=== PATIENT | female | born 1965 | race Caucasian/White ===

== ENCOUNTER 2016-08-30 08:34 | Day surgery (SDC) | payer MEDICARE, OTHER ==
--- NOTE | 2016-08-30 07:14 | History and Physical Report ---
CHIEF COMPLAINT/HISTORY OF CHIEF COMPLAINT: This patient with a history of intractable radiculitis has a spinal opioid infusion device infusing Hydromorphone. Over the last refills it was identified that she had battery depletion. At this point she is here for battery replacement. PAST MEDICAL HISTORY: Hypothyroidism, hydrocephalus with shunt, asthmatic bronchitis. PAST SURGICAL HISTORY: Hip replacement, craniotomy, bladder surgery, and gallbladder surgery. MEDICATIONS ON ADMISSION: List to be provided. ALLERGIES: PENICILLIN, ZOMIG, AND PERCOCET. FAMILY/PSYCHOSOCIAL HISTORY: Social history - Social alcohol. Family history - Thyroid disease, diabetes, and hypertension. SYSTEMS REVIEW: The patient is appropriate in no acute distress. The remainder of the systems review is positive for headaches, depression and difficulty sleeping. PHYSICAL EXAMINATION: Height is 5'6", weight is 110 pounds. No vital signs. HEENT: Within normal limits. LUNGS: Clear. HEART: Regular rate and rhythm. ABDOMEN: Nontender. MUSCULOSKELETAL: Examination of the musculoskeletal system shows the mid incision to be intact. The cnc machine programmer pouch at the right posterior gluteal margin incision is intact. NEUROLOGIC: Cranial nerves are intact. IMPRESSION: 1. INTRACTABLE RADICULITIS, ICD10 CODE M54.16 AND M54.17. 2. INTRASPINAL INFUSION SYSTEM INFUSING HYDROMORPHONE WITH BATTERY DEPLETION. PLAN: The patient is here on an outpatient basis for replacement of the battery. No change will be made to the parameters. MANDO MCCAULEY D.O. Date & Time JOB NUMBER: [id number] [facility]
[~2016-08-30 08:34] MED LIST: ACETAMINOPHEN 1000MG/100 ML PREMIX IV ONE; CLINDAMYCIN 600MG/50ML PREMIX 50 ML IVPB ONE; FAMOTIDINE 20MG TABLET PO ONE; HYDROMORPHONE HCL IV ONE; HYDROMORPHONE HCL/PF 0.002 MG in 0.9 % SODIUM CHLORIDE 10ML VIA 0.998 ML IVP ONE; MECLIZINE 25 MG TABLET PO ONE; METOCLOPRAMIDE 10 MG TABLET PO ONE; SODIUM CHLORIDE 0.9% IV ONE
[2016-08-30] MEDS ORDERED: LIDOCAINE 2% MDV (20MG/ML) 20ML VIAL IV ONE (14:00)
[2016-08-30] MEDS ORDERED: PROPOFOL 10 MG/ML VIAL IV ONE (14:00)
[2016-08-30] MEDS ORDERED: DEXMEDETOMIDINE HCL 200 MCG/2 ML VIAL IV ONE (14:00)
[2016-08-30] MEDS ORDERED: MIDAZOLAM HCL 2MG/2ML VIAL IV ONE (14:00)
[2016-08-30] MEDS ORDERED: BUPIVACAINE 0.5% W/EPI MPF 30 ML VIAL IVP ONE (14:00)
[2016-08-30] MEDS ORDERED: FENTANYL PF 100MCG/2ML VIAL IV ONE (14:00)
[2016-08-30] MEDS ORDERED: LIDOCAINE 1% W/EPI 1:200,000 MPF 30ML SQ ONE (14:00)
[2016-08-30] MEDS ORDERED: CLINDAMYCIN 600MG/4 ML VIAL IV ONE (14:00)
--- NOTE | 2016-09-01 17:00 | Operative Note ---
DATE OF SURGERY: 08/30/2016 PREOPERATIVE DIAGNOSES: 1. Intractable lumbar radiculitis, ICD10 code M54.16 and M54.17. 2. Implanted spinal opioid infusion system hydromorphone with battery depletion. OPERATION: 1. Incision, subcutaneous dissection, removal and replacement of programmable pump at right posterior gluteal margin. 2. Revision and resection of internal catheter. 3. Interface revised catheter to pump placement and pump into pouch secured to fascia without absorbable suture. 4. Diagnostic myelography with radiologic supervision and interpretation. 5. Programming of pump to deliver by continuous infusion of hydromorphone 0.5 mg/day. Surgeon: Kan Paul DO Anesthesia: Local with sedation. Anesthesia Provider: Last Hall. Indication: This patient presents with a history of intractable lumbar radiculitis and a spinal infusion system with hydromorphone. Over the last refill, it was identified that the battery had depletion of the power source, so she is here for battery replacement surgery. PROCEDURE: Intravenous line, vital sign monitoring, IV sedation. Prepped, draped, sterile technique. The patient was positioned prone. Sterile prep, sterile technique. The posterior pouch at the right posterior gluteal margin was infiltrated with local. Incision made and subcutaneous dissection was conducted to the pump pouch. The pouch was opened and the pump exteriorized and from the internal catheter. The internal catheter had a significant number of coils well fibrosed and scarred into the posterior tissue. The catheter was resected out of the scar and a kink identified. At that point, the catheter was resected, the kink removed, and a new catheter component resected into the indwelling catheter. Antibiotic irrigation, Bovie hemostasis. The resected catheter was then interfaced with a new pump, placed onto the field, and prefilled with hydromorphone. With the catheter interfaced to the pump and using a 24 gauge Ryan needle inserted into the access port, 1 mL of catheter content was aspirated, clearing the catheter of opioid and CSF mixture. Diagnostic myelography was then performed. The resulting flow characteristics showed the integrity of the pump catheter connection and the catheter tip at L1 with normal flow characteristics in the spinal space noted. Pump was placed into the pouch, secured to the fascia with nonabsorbable suture at 2 points using pump eyelets and then the incision was closed with Vicryl, fascia with running subcuticular, Vicryl for skin, and Dermabond closure to approximate the edges of the wound. She was transported to the recovery room stable sedation. DISCHARGE INSTRUCTIONS:1. The sites to remain clean and dry. No showering or bathing in any way that would disrupt dressings. If it happens, contact the clinic. 2. Standard medications resumed including antibiotic, Levaquin 500 mg once a day for 14 days. 3. Spinal opioid side effects of respiratory depression, nausea, vomiting, constipation, urinary retention, lightheadedness, and rash have all been discussed and reviewed. All provided, numbers to contact if problems given. She will be seen in the office in 5-7 days to evaluate the incision. Until then, her activities should stay low. Kan Paul DO CC: Dr. Yara DOTSON
== END 2016-08-30 12:55 | disposition home or self-care (01) ==
LOC: SUR 08:34
PROVIDERS: ATTEND Pain Medicine Interventional Pain Medicine
DX: T85.695A Other mechanical complication of other nervous system device, implant or graft, initial encounter (principal); M54.16 Radiculopathy, lumbar region; M54.17 Radiculopathy, lumbosacral region; E03.9 Hypothyroidism, unspecified
CPT/HCPCS: 62362; 00300; 62367; Q9967; J1170; J3010; J3490

== ENCOUNTER 2017-12-04 10:00 | Day surgery (SDC) | payer MEDICARE, OTHER ==
[~2017-12-04 10:00] MED LIST changes: +ACETAMINOPHEN 1,000 MG/100 ML BTL IV ONE; -ACETAMINOPHEN 1000MG/100 ML PREMIX IV ONE; -CLINDAMYCIN 600MG/50ML PREMIX 50 ML IVPB ONE; +CLINDAMYCIN 600MG/50ML PREMIX 600 MG/50 ML BAG IVPB ONE; -HYDROMORPHONE HCL IV ONE; -HYDROMORPHONE HCL/PF 0.002 MG in 0.9 % SODIUM CHLORIDE 10ML VIA 0.998 ML IVP ONE; -SODIUM CHLORIDE 0.9% IV ONE
[2017-12-04] MEDS ORDERED: KETOROLAC 30 MG/ML VIAL IVP ONE (10:01)
[2017-12-04] MEDS ORDERED: BUPIVACAINE 0.5% W/EPI MPF 30 ML VIAL IVP ONE (10:01)
[2017-12-04] MEDS ORDERED: FENTANYL PF 100MCG/2ML VIAL IV ONE (10:01)
[2017-12-04] MEDS ORDERED: DEXAMETHASONE 4 MG/ML 1ML VIAL IVP ONE ×2 (10:01)
[2017-12-04] MEDS ORDERED: PROPOFOL 10 MG/ML VIAL IV ONE (10:01)
[2017-12-04] MEDS ORDERED: ROPIVACAINE HCL (NAROPIN) /PF 5MG/ML 20ML VIAL IV ONE ×2 (10:01)
[2017-12-04] MEDS ORDERED: ROCURONIUM BROMIDE 50MG/5ML VIAL IV ONE (10:01)
[2017-12-04] MEDS ORDERED: ONDANSETRON HCL IV 4 MG/2 ML VIAL IVP ONE (10:01)
[2017-12-04] MEDS ORDERED: MIDAZOLAM HCL 2MG/2ML VIAL IV ONE (10:01)
[2017-12-04] MEDS ORDERED: LIDOCAINE 2% MDV (20MG/ML) 20ML VIAL IV ONE (10:01)
[2017-12-04] MEDS ORDERED: SEVOFLURANE 250 ML INH ONE (10:01)
[2017-12-04 10:15] LABS: HEMATOCRIT 42.3 % (35.0-47.0); HEMOGLOBIN 13.3 gm/dl (11.6-16.0)
[2017-12-04] MEDS ORDERED: ONDANSETRON HCL IV 4 MG/2 ML VIAL IVP PRN (13:14)
[2017-12-04] MEDS: RINGERS SOLUTION,LACTATED 1,000 ML IV SCH (16:13)
[2017-12-04] MEDS: CLINDAMYCIN 150 MG CAP PO SCH ×2 (16:35→22:08)
[2017-12-04] MEDS: TRAMADOL HCL 50 MG TABLET PO PRN (19:16)
[2017-12-05] MEDS: TRAMADOL HCL 50 MG TABLET PO PRN ×4 (01:13→21:37)
[2017-12-05 04:23] LABS: HEMATOCRIT 30.8 % (35.0-47.0); HEMOGLOBIN 9.6 gm/dl (11.6-16.0); MEAN CELL VOLUME 91.1 fl (81-97); MEAN CORPUSCULAR HEMOGLOBIN 28.4 pg (27-33); MEAN CORPUSCULAR HGB CONC 31.2 g/dl (32-36); MEAN PLATELET VOLUME 11.3 fl (7.4-10.4); PLATELET COUNT 259 K/uL (130-400); RED BLOOD COUNT 3.38 M/uL (3.80-5.40)
[2017-12-05 04:24] LABS: WHITE BLOOD COUNT W/O DIFF 20.6 K/uL (4.2-12.2)
[2017-12-05 04:42] LABS: PLATELET ESTIMATE NORMAL (NORMAL)
[2017-12-05] MEDS ORDERED: RINGERS SOLUTION,LACTATED 1,000 ML IV ONE (05:45)
[2017-12-05] MEDS: RINGERS SOLUTION,LACTATED 1,000 ML IV SCH ×4 (08:08→22:54)
[2017-12-05] MEDS: CLINDAMYCIN 150 MG CAP PO SCH ×3 (08:29→21:37)
[2017-12-05 13:52] LABS: HEMATOCRIT 22.9 % (35.0-47.0)
[2017-12-05 13:53] LABS: HEMOGLOBIN 7.2 gm/dl (11.6-16.0)
[2017-12-05 17:36] LABS: ABO GROUP O; ANTIBODY SCREEN NEGATIVE (NEGATIVE); RH TYPE POSITIVE
[2017-12-05 17:37] LABS: IMMED. SPIN CROSSMATCH COMPATIBLE
[2017-12-05 20:52] LABS: IMMED. SPIN CROSSMATCH COMPATIBLE
[2017-12-06 06:46] LABS: HEMATOCRIT 23.9 % (35.0-47.0); HEMOGLOBIN 7.7 gm/dl (11.6-16.0)
[2017-12-06] MEDS: CLINDAMYCIN 150 MG CAP PO SCH (06:47)
[2017-12-06] MEDS: TRAMADOL HCL 50 MG TABLET PO PRN (06:47)
[2017-12-06] MEDS: RINGERS SOLUTION,LACTATED 1,000 ML IV SCH (08:36)
--- NOTE | 2017-12-07 02:37 | CT SCAN REPORT ---
DATE: 12/05/2017 at 4:47 a.m. EXAM: EMERGENCY HEAD CT WITHOUT CONTRAST. HISTORY: The patient fell and hit head on left side. Possible seizure. History of shunt tube for hydrocephalus. TECHNIQUE: Axial CT scan of the head performed without intravenous contrast. Preliminary report provided by [facility]. COMPARISON: No prior head CT with which to compare. ENCOUNTER: Initial. FINDINGS: No definite acute intracranial hemorrhage identified. No focal mass effect or midline shift apparent. Note is made of a ventricular shunt tube in place entering through the right posterior parietal region and extending anteromedially through the dilated trigone and posterior horn of the right lateral ventricle with the tip in the approximate midline near the septum pellucidum. There is prominent dilatation of the trigone and posterior horn of the right lateral ventricle and to a mild degree the temporal horn of the right lateral ventricle. Elsewhere the ventricular system appears relatively nondilated. This may be chronic for the patient, but recommend comparison with prior head CT or MRIs to determine if there has been any appreciable change in this degree of dilatation on the right. No depressed calvarial fracture is evident. IMPRESSION: 1. NO ACUTE INTRACRANIAL HEMORRHAGE OR FOCAL MASS EFFECT IDENTIFIED. 2. RIGHT VENTRICULAR SHUNT TUBE IN PLACE DESCRIBED ABOVE. ASYMMETRIC DILATATION OF THE REGION OF THE TRIGONE AND POSTERIOR HORN OF THE RIGHT LATERAL VENTRICLE AND TO A LESSER DEGREE THE RIGHT VENTRICLE TEMPORAL HORN WELL. THIS MAY BE CHRONIC IN NATURE, BUT RECOMMEND COMPARISON WITH PRIOR STUDIES DESCRIBED ABOVE. JOB NUMBER: [id number] MTDD
--- NOTE | 2017-12-07 02:43 | CT SCAN REPORT ---
DATE: 12/05/2017 at 4:51 a.m. EXAM: EMERGENCY CERVICAL SPINE CT WITHOUT CONTRAST. HISTORY: The patient fell and hit head. TECHNIQUE: Axial CT scan of the entire cervical spine performed without intravenous contrast. Preliminary report provided by [facility]. COMPARISON: No prior cervical CT with which to compare. ENCOUNTER: Initial. FINDINGS: No apical pneumothorax evident. No definite fracture of the cervical spine identified. No prevertebral soft tissue swelling is seen. There is degenerative change at the odontoid-anterior arch of C1 articulation. Cervical intervertebral disc spaces are relatively maintained, although there is some mild spurring in the cervical spine. Fusion of the left C2-3 facet articulation. There is also tilting of the cervical spine to the left which may be due to positioning or spasm. IMPRESSION: 1. NO DEFINITE FRACTURE OR PREVERTEBRAL SOFT TISSUE SWELLING SEEN IN THE CERVICAL SPINE. 2. MULTILEVEL DEGENERATIVE CHANGE IN THE CERVICAL SPINE WITH FUSION OF THE LEFT C2-3 FACET ARTICULATION. 3. TILTING OF THE SPINE TO THE LEFT WHICH MAY BE DUE TO POSITIONING OR SPASM. JOB NUMBER: [id number] [facility]
--- NOTE | 2018-01-15 21:18 | Discharge Summary ---
DATE OF ADMISSION: 12/04/2017 DATE OF DISCHARGE: 12/05/2017 ADMITTING DIAGNOSES: 1. CHRONIC PANNICULITIS. 2. MASSIVE WEIGHT LOSS. 3. BIPOLAR DISORDER. DISCHARGE DIAGNOSES: 1. CHRONIC PANNICULITIS. 2. MASSIVE WEIGHT LOSS. 3. BIPOLAR DISORDER. PROCEDURE: [id number] ABDOMINOPLASTY. ADMITTING PHYSICIAN: DR. UMAIR FARRIS DISCHARGING PHYSICIAN: DR. UMAIR FARRIS MEDICATIONS AT DISCHARGE: Valium [place] Clindamycin COMPLICATIONS: None. HISTORY AND HOSPITAL COURSE: The patient underwent a Jgmib-ol-Hab abdominoplasty, open panniculectomy for chronic abdominal wall irritation and panniculitis after massive weight loss. Her post-op course was uneventful. At discharge, she was taking p.o., comfortable, and ambulating. Very specific instructions were given for care and follow-up at discharge. JOB NUMBER: [id number] MTDD
--- NOTE | 2018-01-15 22:01 | Operative Note ---
DATE OF OPERATION: 12/04/2017 PREOPERATIVE DIAGNOSES: 1. MASSIVE WEIGHT LOSS. 2. CHRONIC PANNICULITIS. 3. CHRONIC INTERTRIGO. 4. ABDOMINAL WALL DEFORMITY. POSTOPERATIVE DIAGNOSES: 1. MASSIVE WEIGHT LOSS. 2. CHRONIC PANNICULITIS. 3. CHRONIC INTERTRIGO. 4. ABDOMINAL WALL DEFORMITY. PROCEDURE: [id number] ABDOMINOPLASTY. SURGEON: DR. UMAIR FARRIS ANESTHETIC: GENERAL. ESTIMATED BLOOD LOSS: 100 ML. DRAINS: 15 ROUND BOLIVAR. SPECIMENS: FOUR LBS OF ABDOMINAL TISSUE. PROCEDURE: The patient was interviewed preoperatively. The operative plan was reviewed. She was marked in the standing position. The operative plan was reviewed. She was then taken to the Operating Room with PAS stockings. After induction of uncomplicated general anesthesia, all pressure points were well padded and protected. We prepped and draped in the usual sterile manner. We circumscribed her umbilicus with a 15 blade, leaving it on a well-vascularized stalk. We then incised inferiorly down through dermis and then using cautery raised the skin flap in the suprafascial plane leaving a layer of lymphatics. It should be noted that a [employer] shunt was encountered, identified, and protected throughout the remainder of the procedure. Once we elevated the flaps, we then plicated again with special attention to the shunt to make sure it was not kinked, twisted, or clotted in any way. Upon completion of the plication, we sat her up 45 degrees and marked her for the appropriate skin resection. We then removed the lower abdominal flap. We advanced the tissue from lateral to medial and, as expected in the pre-op, had a lot of medial excess. We then marked a large ellipse in the midline. We excised the subcutaneous tissue full- thickness using cautery and again being very careful not to injure the [employer]ING [employer]INE [employer]PER[employer] shunt. We then closed temporarily, made sure of a good shape, contour, and symmetry. We placed a 15 round Bol[place]ar drain. I then closed in two layers using interrupted #3-0 Monocryl dissolvable Infrasorb sutures every 0.5 cm and then running #3-0 Monocryl. The umbilicus was brought out in the midline at the level of the anterior superior iliac spine and secured with #3-0 Monocryl. Local anesthetic was then placed in the drain. She tolerated the procedure well without complication. JOB NUMBER: [id number] [facility]
== END 2017-12-06 11:56 | disposition home or self-care (01) ==
LOC: SUR 10:00 → MEDSURG 13:44 → SUR 12-06 11:56
PROVIDERS: ATTEND Plastic Surgery
DX: Z98.84 Bariatric surgery status (principal); L30.4 Erythema intertrigo; D71 Functional disorders of polymorphonuclear neutrophils; M95.8 Other specified acquired deformities of musculoskeletal system; F31.9 Bipolar disorder, unspecified
CPT/HCPCS: 15830; 15847; 00802; 64488; 85018; 85014; 85027; 86900; 86901; 86850; 72125; 70450; P9016; J1885; J2405; J3010; J2795; J7120

== ENCOUNTER 2017-12-07 11:44 | Emergency (ER) | payer MEDICARE, OTHER ==
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
[2017-12-07] MEDS ORDERED: LIDOCAINE (XYLOCAINE) 1% MPF 10MG/ML 5ML VIAL ONE (12:25)
== END 2017-12-07 14:01 | disposition home or self-care (01) ==
LOC: ER 11:44
DX: T81.31XA Disruption of external operation (surgical) wound, not elsewhere classified, initial encounter (principal); Y83.8 Other surgical procedures as the cause of abnormal reaction of the patient, or of later complication, without mention of misadventure at the time of the procedure
CPT/HCPCS: 99283; J3490

== ENCOUNTER 2018-01-12 12:43 | Inpatient (IN) | payer MEDICARE, OTHER ==
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
[2018-01-12 13:17] LABS: BASO % 0.2 % (0-6); EOS % 1.8 % (0-6); GRAN % 67.7 % (47-80); HEMATOCRIT 36.1 % (35.0-47.0); HEMOGLOBIN 10.6 gm/dl (11.6-16.0); LYMPH % 23.1 % (16-45); MEAN CELL VOLUME 85.5 fl (81-97); MEAN CORPUSCULAR HEMOGLOBIN 25.1 pg (27-33); MEAN CORPUSCULAR HGB CONC 29.4 g/dl (32-36); MEAN PLATELET VOLUME 10.1 fl (7.4-10.4); MONO % 7.2 % (0-9); PLATELET COUNT 314 K/uL (130-400); RED BLOOD COUNT 4.22 M/uL (3.80-5.40); RED CELL DISTRIBUTION WIDTH 13.9 % (11.5-14.5); WHITE BLOOD COUNT W/O DIFF 5.6 K/uL (4.2-12.2)
[2018-01-12 13:27] LABS: BLOOD UREA NITROGEN 14 mg/dL (6-20); CREATININE 0.5 mg/dL (0.5-0.9); EST GLOMERULAR FILTRATION RATE > 60 mL/min; TOTAL PROTEIN 6.8 g/dL (6.6-8.7)
[2018-01-12 13:29] LABS: GLUCOSE,RANDOM 78 mg/dL (74-109)
[2018-01-12 13:32] LABS: ALB/GLOB RATIO 1.7 (1.1-1.8); ALBUMIN 4.3 g/dL (4.0-5.0); ALKALINE PHOSPHATASE 93 U/L (35-104); ALT/SGPT < 5 U/L (<33); AST/SGOT 13 U/L (10.0-35.0); C-REACTIVE PROTEIN 0.97 mg/dL (<0.5)
[2018-01-12] MEDS ORDERED: CLINDAMYCIN 600MG/50ML PREMIX 600 MG/50 ML BAG IVPB SCH (19:50)
[2018-01-12] MEDS ORDERED: ONDANSETRON HCL IV 4 MG/2 ML VIAL IVP PRN (19:50)
[2018-01-12] MEDS ORDERED: ACETAMINOPHEN 500 MG TABLET PO PRN (19:50)
[2018-01-12 20:06] LABS: PARTIAL THROMBOPLASTIN TIME 31.7 SECONDS (24.5-39.1); PROTHROMBIN TIME (PATIENT) 9.7 SECONDS (9.5-12.1)
[2018-01-12] MEDS ORDERED: ONDANSETRON 4 MG ODT TABLET SL PRN (20:57)
[2018-01-12] MEDS ORDERED: DIAZEPAM 5MG/ML **10ML VIAL IVP PRN (21:03)
[2018-01-12] MEDS: CLINDAMYCIN IVPB SCH (22:42)
[2018-01-12] MEDS: SODIUM CHLORIDE 0.9% IVPB SCH (22:42)
[2018-01-12] MEDS: DIPHENHYDRAMINE HCL 25 MG CAPSULE PO PRN (23:19)
[2018-01-13] MEDS: HYDROCODONE/APAP 5/325MG TABLET PO PRN ×2 (05:07→20:17)
[2018-01-13] MEDS: SODIUM CHLORIDE 0.9% IVPB SCH ×3 (05:56→20:55)
[2018-01-13] MEDS: CLINDAMYCIN IVPB SCH ×3 (05:56→20:55)
[2018-01-13 06:33] LABS: BASO % 0.2 % (0-6); EOS % 2.5 % (0-6); GRAN % 55.3 % (47-80); HEMATOCRIT 29.8 % (35.0-47.0); HEMOGLOBIN 8.9 gm/dl (11.6-16.0); LYMPH % 33.2 % (16-45); MEAN CELL VOLUME 85.4 fl (81-97); MEAN CORPUSCULAR HEMOGLOBIN 25.5 pg (27-33); MEAN CORPUSCULAR HGB CONC 29.9 g/dl (32-36); MEAN PLATELET VOLUME 10.4 fl (7.4-10.4); MONO % 8.8 % (0-9); PLATELET COUNT 252 K/uL (130-400); RED BLOOD COUNT 3.49 M/uL (3.80-5.40); RED CELL DISTRIBUTION WIDTH 13.8 % (11.5-14.5); WHITE BLOOD COUNT W/O DIFF 4.8 K/uL (4.2-12.2)
[2018-01-14] MEDS ORDERED: RINGERS SOLUTION,LACTATED 1,000 ML IV PRN
[2018-01-14] MEDS: HYDROCODONE/APAP 5/325MG TABLET PO PRN ×4 (00:16→17:54)
[2018-01-14] MEDS: DIPHENHYDRAMINE HCL 25 MG CAPSULE PO PRN ×2 (00:16→22:37)
[2018-01-14] MEDS: SODIUM CHLORIDE 0.9% IVPB SCH (05:14)
[2018-01-14] MEDS: CLINDAMYCIN IVPB SCH (05:14)
--- NOTE | 2018-01-14 07:48 | CT SCAN REPORT ---
EXAM: CT OF THE ABDOMEN AND PELVIS WITH CONTRAST HISTORY: POSTOP DRAINAGE TWO DAYS [facility] 12/04/17, GASTRIC BYPASS SURGERY, CHOLECYSTECTOMY. TECHNIQUE: Axial CT scan of the abdomen and pelvis was performed following oral and IV contrast administration. Please see the medical record for contrast specifics. Comparison: None. FINDINGS: Surgical clips in the gallbladder fossa consistent with cholecystectomy. Postop changes about the stomach consistent with gastric bypass surgery. There is some form of tubing running vertically through the subcutaneous tissues of the right abdominal wall and entering the peritoneal cavity at the level of the upper pelvis. This may represent a ventriculoperitoneal shunt tube and clinical correlation is suggested. There appears to be some form of presumed surgical drain entering a fluid collection in the subcutaneous tissues of the mid anterior abdominal wall. There are air bubbles with this fluid collection. These findings are nonspecific and could just be postoperative in nature, but abscess cannot be excluded. This subcutaneous collection measures about 12 cm in transverse diameter, 2.1 cm in AP diameter and extends for a craniocaudal dimension of about 9 cm. This collection does not appear to extend through the anterior abdominal wall into the peritoneal cavity itself. Mild streaky atelectasis or infiltrate in the right lung base. Minor dependent atelectasis left lung base. The heart size is normal. No pleural or pericardial effusion evident. No definite hepatic, splenic, adrenal, pancreatic, or renal mass identified. Postop change involving the right acetabulum with an internal plate and screw fixation device along the posterior aspect of the right acetabulum. This creates artifact at the level of the orthopedic hardware. Small hiatal hernia. Oral contrast given has passed throughout the small bowel well into the colon with no small bowel obstruction evident. No free intraperitoneal air or free intraperitoneal fluid evident. There is a spinal catheter in place entering the lumbar spine at the L2-L3 interspace level and extending up to the level of the T11 vertebra. IMPRESSION: 1. EXTENSIVE POSTOPERATIVE FINDINGS INCLUDING CHOLECYSTECTOMY, POSTOP GASTRIC BYPASS SURGERY, POSTOP RIGHT ACETABULAR PLATE AND SCREW FIXATION DEVICE, PROBABLY A VENTRICULOPERITONEAL SHUNT TUBE IN PLACE, AND A SPINAL CATHETER IN PLACE WITH ASSOCIATED BATTERY PACK IN THE SUBCUTANEOUS TISSUES OF THE RIGHT BUTTOCK PRESUMABLY REPRESENTING A PAIN PUMP DEVICE. 2. THERE IS ALSO APPARENT POSTOP CHANGE IN THE ANTERIOR ABDOMINAL WALL WITH A SURGICAL DRAIN WITHIN A LARGE FLUID COLLECTION CONTAINING SOME AIR WITH MEASUREMENTS ABOVE. ABSCESS CANNOT BE EXCLUDED. THIS DOES NOT APPEAR TO EXTEND INTO THE PERITONEAL CAVITY ITSELF. 3. SMALL HIATAL HERNIA. 4. OTHER FINDINGS ABOVE. JOB NUMBER: [id number] MTDD
[2018-01-14 09:37] LABS: HEMATOCRIT 30.7 % (35.0-47.0); HEMOGLOBIN 8.9 gm/dl (11.6-16.0)
[2018-01-14] MEDS ORDERED: HYDROCODONE/APAP 5/325MG TABLET PO PRN (10:54)
[2018-01-14] MEDS ORDERED: DIAZEPAM 5MG/ML **10ML VIAL IVP PRN (11:01)
[2018-01-14] MEDS ORDERED: ONDANSETRON HCL IV 4 MG/2 ML VIAL IVP PRN (11:27)
[2018-01-14] MEDS ORDERED: MIDAZOLAM HCL 2MG/2ML VIAL IV ONE (14:00)
[2018-01-14] MEDS ORDERED: PROPOFOL 10 MG/ML VIAL IV ONE (14:00)
[2018-01-14] MEDS ORDERED: FENTANYL PF 100MCG/2ML VIAL IV ONE (14:00)
[2018-01-14] MEDS ORDERED: LIDOCAINE 2% MDV (20MG/ML) 20ML VIAL IV ONE (14:00)
[2018-01-14] MEDS ORDERED: SEVOFLURANE 250 ML INH ONE (14:00)
[2018-01-14] MEDS: CLINDAMYCIN 150 MG CAP PO SCH ×2 (14:25→22:31)
[2018-01-14] MEDS ORDERED: HYDROMORPHONE HCL 2 MG/ML VIAL IV ONE (15:15)
[2018-01-14] MEDS ORDERED: BUPIVACAINE 0.5% (5MG/ML) PF 30ML VIAL IVP ONE (16:01)
[2018-01-14] MEDS: RINGERS SOLUTION,LACTATED 1,000 ML IV SCH ×2 (18:36→20:22)
[2018-01-15] MEDS: HYDROCODONE/APAP 5/325MG TABLET PO PRN ×2 (01:51→10:11)
[2018-01-15] MEDS: RINGERS SOLUTION,LACTATED 1,000 ML IV SCH ×3 (01:53→10:04)
[2018-01-15] MEDS: CLINDAMYCIN 150 MG CAP PO SCH ×2 (05:54→14:08)
--- NOTE | 2018-01-15 22:10 | Operative Note ---
DATE OF OPERATION: 01/14/2018 PREOPERATIVE DIAGNOSIS: ABDOMINAL WALL ABSCESS. POSTOPERATIVE DIAGNOSIS: ABDOMINAL WALL ABSCESS. PROCEDURE: I&D ABDOMINAL WALL ABSCESS. SURGEON: DR. UMAIR FARRIS ANESTHETIC: GENERAL. ESTIMATED BLOOD LOSS: MINIMAL. DRAINS: 15 ROUND BOLIVAR. SPECIMENS: BOTH AEROBIC AND ANAEROBIC CULTURES. INDICATIONS: The patient is a very nice patient who is six weeks post-op panniculectomy. Her drain fell out and in the office had a small Wayne placed for the recurrent seroma. She reports that 48 hours prior to admission, the Lisman drain came out and she noticed swelling and then finally discharge. She was admitted, put on antibiotics and plan for drainage. PROCEDURE: The patient was interviewed preoperatively. The operative plan was reviewed. She was then taken to the Operating Room with PAS stockings. After induction of uncomplicated general anesthesia, all pressure points were well padded and protected. We prepped and draped in the usual sterile manner. We took a small ellipse in the lower midline incision to completely excise the draining tracts. A pocket was clearly identified. Per CAT scan, there were a couple loculations and these pockets were also opened and drained, consistently with what the CAT scan showed. Once all pockets were drained, we then irrigated with 2 liters of saline. Cultures were taken prior to irrigation. Once we had good hemostasis, we placed a brand new 15 round Bolivar drain to encompass all pockets and closed in two layers with Monocryl. Sterile dressings were applied. She tolerated the procedure well without complication. JOB NUMBER: [id number] [facility]TD[facility]
== END 2018-01-15 15:25 | disposition home or self-care (01) | DRG 857 ==
LOC: ER 12:43 → MEDSURG 19:47
PROVIDERS: ADMIT Plastic Surgery; ATTEND Plastic Surgery
PROC: 0W9F00Z Drainage of Abdominal Wall with Drainage Device, Open Approach (ICD-10-PCS; principal; 2018-01-12)
DX: L76.32 Postprocedural hematoma of skin and subcutaneous tissue following other procedure (principal); R68.83 Chills (without fever); M19.90 Unspecified osteoarthritis, unspecified site; F31.9 Bipolar disorder, unspecified; Z87.442 Personal history of urinary calculi; Z98.84 Bariatric surgery status; T81.4XXA Infection following a procedure, initial encounter; L02.211 Cutaneous abscess of abdominal wall
CPT/HCPCS: 85025; 85730; 85610; 86140; 80053; 74177; Q9967; 85014; 85018; 87070; J7120